=== PATIENT | female | born 1975 | race Caucasian/White ===

== ENCOUNTER 2018-02-23 03:09 | Observation (INO) | payer BC ==
--- NOTE | 2018-02-23 03:37 | ER ---
Nurse's Notes [facility] Name: Mague Haynes Age: 43 yrs Sex: Female : 1975 Arrival Date: 02/23/2018 Time: 03:11 Bed 17 Private MD: Kevin Duron S Diagnosis: Abdominal tenderness;Hypomagnesemia;Hypokalemia;Abnormal findings on diagnostic imaging of liver and biliary tract Presentation: 02/23 03:21 Presenting complaint: Patient states: Reports epigastric pain that started yesterday pt ea stated "I felt like there was something stuck in my esophagus". At midnight pain became more intense. Reports she has had this type of issue before but not this intense. Transition of care: patient was not received from another setting of care. Onset of symptoms was February 23, 2018. Initial Sepsis Screen: Does the patient meet any 2 criteria? No. Patient's initial sepsis screen is negative. Does the patient have a suspected source of infection? No. Patient's initial sepsis screen is negative. Care prior to arrival: Medication(s) given: Mylanta. 03:21 Method Of Arrival: Ambulatory ea 03:21 Acuity: RENETTA 3 ea Triage Assessment: 03:28 General: Appears uncomfortable, Behavior is calm, cooperative. Pain: Complains of pain ea in epigastric area. GI: Abdomen is non-distended, Bowel sounds present X 4 quads. Abd is soft X 4 quads Abdomen is tender to palpation in right upper quadrant and left upper quadrant. 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 - Social history:: Smoking status: Patient/guardian denies using tobacco. - Family history:: not pertinent. Screenin:25 Abuse screen: Denies threats or abuse. Nutritional screening: No deficits noted. ea Tuberculosis screening: No symptoms or risk factors identified. Fall Risk None identified. Assessment: 04:46 Reassessment: Patient and/or family updated on plan of care and expected duration. Pain ea level reassessed. Pt c/o abd pain 9/10, order obtained, medication administered, pt tolerated well. 05:36 Reassessment: Patient and/or family updated on plan of care and expected duration. Pain ea level reassessed. Patient is alert, oriented x 3, equal unlabored respirations, skin warm/dry/pink. Patient reports pain has decreased. 07:10 General: Appears in no apparent distress. uncomfortable, Behavior is calm, cooperative, hj appropriate for age. Pain: Complains of pain in left upper quadrant and right upper quadrant and abdomen and epigastric area. Neuro: Level of Consciousness is awake, alert, obeys commands, Oriented to person, place, time, situation, Appropriate for age. Cardiovascular: Capillary refill < 3 seconds Patient's skin is warm and dry. Respiratory: Airway is patent Respiratory effort is even, unlabored, Respiratory pattern is regular, symmetrical. GI: Reports lower abdominal pain, upper abdominal pain. : No signs and/or symptoms were reported regarding the genitourinary system. EENT: No signs and/or symptoms were reported regarding the EENT system. Derm: No signs and/or symptoms reported regarding the dermatologic system. Musculoskeletal: No signs and/or symptoms reported regarding the musculoskeletal system. 08:00 Reassessment: Dr. Medrano visited pt; POC explained;. hj 09:03 Reassessment: pt for MRI, POC depending on MRI results;. hj Vital Signs: 03:25 BP 119 / 89; Pulse 77; Resp 18; Temp 98.2(O); Pulse Ox 97% on R/A; Weight 64.86 kg; ea Height 5 ft. 5 in. (165.10 cm); Pain 7/10; 04:49 BP 114 / 84; Pulse 69; Resp 18; Pulse Ox 99% ; Pain 5/10; ea 05:39 BP 117 / 75; Pulse 72; Resp 18; Pulse Ox 98% ; ea 03:25 Body Mass Index 23.80 (64.86 kg, 165.10 cm) ea ED Course: 03:11 Patient arrived in ED. am2 03:11 Kevin Duron MD is Private Physician. am2 03:16 Reinaldo Jackson MD is Attending Physician. gary 03:19 Jimena Oliva, NICOLETTE is Primary Nurse. ea 03:20 Inserted saline lock: 20 gauge in right antecubital area, using aseptic technique. ea Blood collected. 03:24 Triage completed. ea 03:25 Patient has correct armband on for positive identification. Placed in gown. Bed in low ea position. Call light in reach. Side rails up X2. 03:25 Arm band placed on right wrist. Patient placed in an exam room, on a stretcher, on ea pulse oximetry. 03:36 Fausto Shane MD is Hospitalizing Provider. gary 03:41 X-ray completed. Portable x-ray completed in exam room. Patient tolerated procedure kw well. 03:42 XRAY Chest (1 view) In Process Unspecified. EDMS 06:[address] via wheelchair. eh 06:20 CT completed. Patient tolerated procedure well. eh 06:52 Ultrasound completed. Patient tolerated well. aa4 06:59 Hospitalizing Provider role handed off by Fausto Shane MD gary 06:59 Rhianna Medrano MD is Hospitalizing Provider. gary 07:09 Primary Nurse role handed off by Jimena Oliva RN bd 07:10 Kartik Prado, NICOLETTE is Primary Nurse. hj Administered Medications: 03:40 Drug: Pepcid 20 mg Route: IVP; Site: right antecubital; ea 05:25 Follow up: Response: No adverse reaction ea 03:40 Drug: Zofran 4 mg Route: IVP; Site: right antecubital; ea 05:09 Follow up: Response: No adverse reaction ea 03:40 Drug: NS 0.9% 1000 ml Route: IV; Rate: 1 bolus; Site: right antecubital; ea 05:08 Follow up: Response: No adverse reaction; IV Status: Completed infusion; IV Intake: ea 1000ml 04:00 Drug: fentaNYL (PF) 25 mcg Route: IVP; Site: right antecubital; ea 05:10 Follow up: Response: No adverse reaction; Pain is decreased ea 04:25 Drug: Zosyn 3.375 grams Route: IVPB; Infused Over: 60 mins; Site: right antecubital; ea 05:09 Follow up: Response: No adverse reaction; IV Status: Completed infusion ea 04:40 Drug: fentaNYL (PF) 25 mcg Route: IVP; Site: right antecubital; ea 05:11 Follow up: Response: No adverse reaction; Pain is decreased ea 05:25 Drug: Magnesium Sulfate 1 grams Route: IVPB; Infused Over: 1 hrs; Site: right ea antecubital; 05:28 Drug: NS 0.9% 1000 ml Route: IV; Rate: 1 bolus; Site: right antecubital; ea 05:30 Drug: NS 0.9% with KCl 20 mEq/L 1000 ml Route: IV; Rate: 125 ml/hr; Site: right ea antecubital; Intake: 05:08 IV: 1000ml; Total: 1000ml. ea Outcome: 03:37 Decision to Hospitalize by Provider. [facility] 09:43 Patient left the ED. aa5 Signatures: Dispatcher [employer] EDMS Destinee Eng Corey, MD MD cha Hagler, Ervin eh Frazier, Amanda aa4 Samantha Lucero RN RN aa5 Shirlene Alegria Henry, RN RN hj Moreno, Amanda am2 Jimena Oliva RN RN ea
--- NOTE | 2018-02-23 03:38 | EDPHYS ---
Physician Documentation [facility] Name: Mague Haynes Age: 43 yrs Sex: Female : 1975 Arrival Date: 02/23/2018 Time: 03:11 Bed 17 Private MD: Kevin Duron S ED Physician Reinaldo Jackson HPI: 02/23 03:31 This 43 yrs old Female presents to ER via Ambulatory with complaints of gary Abdominal Pain, Nausea. 03:31 The patient presents to the emergency department with nausea, vomiting, abdominal pain, gary of the epigastric area, right upper quadrant and left upper quadrant. Onset: The symptoms/episode began/occurred just prior to arrival. Possible causes: gallbladder. The symptoms are aggravated by food , The symptoms are alleviated by nothing. Associated signs and symptoms: The patient has no apparent associated signs or symptoms. Severity of symptoms: At their worst the symptoms were mild moderate in the emergency department the symptoms are unchanged. The patient has not experienced similar symptoms in the past. 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 - Social history:: Smoking status: Patient/guardian denies using tobacco. - Family history:: not pertinent. ROS: 03:31 Constitutional: Negative for fever, chills, and weight loss, Eyes: Negative for injury, gary pain, redness, and discharge, ENT: Negative for injury, pain, and discharge, Neck: Negative for injury, pain, and swelling, Cardiovascular: Negative for chest pain, palpitations, and edema, Respiratory: Negative for shortness of breath, cough, wheezing, and pleuritic chest pain, Back: Negative for injury and pain, : Negative for injury, bleeding, discharge, and swelling, MS/Extremity: Negative for injury and deformity, Skin: Negative for injury, rash, and discoloration, Neuro: Negative for headache, weakness, numbness, tingling, and seizure, Psych: Negative for depression, anxiety, suicide ideation, homicidal ideation, and hallucinations, Allergy/Immunology: Negative for hives, rash, and allergies, Endocrine: Negative for neck swelling, polydipsia, polyuria, polyphagia, and marked weight changes, Hematologic/Lymphatic: Negative for swollen nodes, abnormal bleeding, and unusual bruising. 03:31 Abdomen/GI: Positive for abdominal pain, of the epigastric area, right upper quadrant and left upper quadrant. Exam: 03:31 Constitutional: This is a well developed, well nourished patient who is awake, alert, gary and in no acute distress. Head/Face: Normocephalic, atraumatic. Eyes: Pupils equal round and reactive to light, extra-ocular motions intact. Lids and lashes normal. Conjunctiva and sclera are non-icteric and not injected. Cornea within normal limits. Periorbital areas with no swelling, redness, or edema. ENT: Nares patent. No nasal discharge, no septal abnormalities noted. Tympanic membranes are normal and external auditory canals are clear. Oropharynx with no redness, swelling, or masses, exudates, or evidence of obstruction, uvula midline. Mucous membranes moist. Neck: Trachea midline, no thyromegaly or masses palpated, and no cervical lymphadenopathy. Supple, full range of motion without nuchal rigidity, or vertebral point tenderness. No Meningismus. Chest/axilla: Normal chest wall appearance and motion. Nontender with no deformity. No lesions are appreciated. Cardiovascular: Regular rate and rhythm with a normal S1 and S2. No gallops, murmurs, or rubs. Normal PMI, no JVD. No pulse deficits. Respiratory: Lungs have equal breath sounds bilaterally, clear to auscultation and percussion. No rales, rhonchi or wheezes noted. No increased work of breathing, no retractions or nasal flaring. Back: No spinal tenderness. No costovertebral tenderness. Full range of motion. Skin: Warm, dry with normal turgor. Normal color with no rashes, no lesions, and no evidence of cellulitis. MS/ Extremity: Pulses equal, no cyanosis. Neurovascular intact. Full, normal range of motion. Neuro: Awake and alert, GCS 15, oriented to person, place, time, and situation. Cranial nerves II-XII grossly intact. Motor strength 5/5 in all extremities. Sensory grossly intact. Cerebellar exam normal. Normal gait. Psych: Awake, alert, with orientation to person, place and time. Behavior, mood, and affect are within normal limits. 03:31 Abdomen/GI: Inspection: abdomen appears normal, Bowel sounds: normal, Palpation: moderate abdominal tenderness, in the epigastric area, right upper quadrant and left upper quadrant. Vital Signs: 03:25 BP 119 / 89; Pulse 77; Resp 18; Temp 98.2(O); Pulse Ox 97% on R/A; Weight 64.86 kg; ea Height 5 ft. 5 in. (165.10 cm); Pain 7/10; 04:49 BP 114 / 84; Pulse 69; Resp 18; Pulse Ox 99% ; Pain 5/10; ea 05:39 BP 117 / 75; Pulse 72; Resp 18; Pulse Ox 98% ; ea 03:25 Body Mass Index 23.80 (64.86 kg, 165.10 cm) ea MDM: 03:16 Patient medically screened. [facility] 03:31 Data reviewed: vital signs, nurses notes, lab test result(s), EKG, radiologic studies, [facility] CT scan. 02/23 03:24 Order name: Amylase, Serum; Complete Time: 05:01 [facility] 02/23 03:24 Order name: Basic Metabolic Panel; Complete Time: 05:01 [facility] 02/23 03:24 Order name: CBC with Diff; Complete Time: 05:01 [facility] 02/23 03:24 Order name: Creatinine for Radiology; Complete Time: 05:01 [facility] 02/23 03:24 Order name: Hepatic Function; Complete Time: 05:01 [facility] 02/23 03:24 Order name: Lipase; Complete Time: 05:01 [facility] 02/23 03:24 Order name: Urine Microscopic Only [facility] 02/23 03:31 Order name: BNP; Complete Time: 05:01 [facility] 02/23 03:31 Order name: PT-INR; Complete Time: 05:01 [facility] 02/23 03:31 Order name: Ptt, Activated; Complete Time: 05:01 [facility] 02/23 03:31 Order name: Troponin (emerg Dept Use Only); Complete Time: 05:01 [facility] 02/23 03:31 Order name: XRAY Chest (1 view) [facility] 02/23 03:42 Order name: Basic Metabolic Panel EDMS 02/23 03:42 Order name: Basic Metabolic Panel EDMS 02/23 03:42 Order name: CBC with Automated Diff EDMS 02/23 03:42 Order name: CBC with Automated Diff EDMS 02/23 03:42 Order name: Lipase EDMS 02/23 03:42 Order name: Lipase [facility] 02/23 03:42 Order name: Liver (Hepatic) Function [facility] 02/23 03:42 Order name: Liver (Hepatic) Function [facility] 02/23 03:49 Order name: Creatine Phosphokinase; Complete Time: 05:01 [facility] 02/23 03:49 Order name: CKMB Creatine Kinase MB; Complete Time: 05:01 [facility] 02/23 03:49 Order name: Magnesium; Complete Time: 05:01 [facility] 02/23 04:24 Order name: Urine Dipstick--Ancillary (enter results) 02/23 04:24 Order name: Urine --Ancillary (enter results) 02/23 04:34 Order name: Urine --Ancillary; Complete Time: 05:01 [facility] 02/23 04:34 Order name: Urine Dipstick-Ancillary; Complete Time: 05:01 [facility] 02/23 03:24 Order name: Urine Test (obtain specimen); Complete Time: 04:26 [facility] 02/23 03:24 Order name: IV Saline Lock; Complete Time: 04:26 [facility] 02/23 03:24 Order name: Labs collected and sent; Complete Time: 04:26 [facility] 02/23 03:24 Order name: Urine Dipstick-Ancillary (obtain specimen); Complete Time: 04:26 [facility] 02/23 03:31 Order name: EKG; Complete Time: 03:32 [facility] 02/23 03:31 Order name: Cardiac monitoring; Complete Time: 06:36 [facility] 02/23 03:31 Order name: EKG - Nurse/Tech; Complete Time: 04:25 [facility] 02/23 03:31 Order name: O2 Per Protocol; Complete Time: 04:25 [facility] 02/23 03:31 Order name: O2 Sat Monitoring; Complete Time: 04:25 [facility] 02/23 03:31 Order name: CT Abd/Pelvis - W/Contrast [facility] 02/23 03:42 Order name: NPO [facility] 02/23 03:43 Order name: Abdomen Exam Limited [facility] 02/23 09:03 Order name: CT EDIA Administered Medications: 03:40 Drug: Pepcid 20 mg Route: IVP; Site: right antecubital; ea 05:25 Follow up: Response: No adverse reaction ea 03:40 Drug: Zofran 4 mg Route: IVP; Site: right antecubital; ea 05:09 Follow up: Response: No adverse reaction ea 03:40 Drug: NS 0.9% 1000 ml Route: IV; Rate: 1 bolus; Site: right antecubital; ea 05:08 Follow up: Response: No adverse reaction; IV Status: Completed infusion; IV Intake: ea 1000ml 04:00 Drug: fentaNYL (PF) 25 mcg Route: IVP; Site: right antecubital; ea 05:10 Follow up: Response: No adverse reaction; Pain is decreased ea 04:25 Drug: Zosyn 3.375 grams Route: IVPB; Infused Over: 60 mins; Site: right antecubital; ea 05:09 Follow up: Response: No adverse reaction; IV Status: Completed infusion ea 04:40 Drug: fentaNYL (PF) 25 mcg Route: IVP; Site: right antecubital; ea 05:11 Follow up: Response: No adverse reaction; Pain is decreased ea 05:25 Drug: Magnesium Sulfate 1 grams Route: IVPB; Infused Over: 1 hrs; Site: right ea antecubital; 05:28 Drug: NS 0.9% 1000 ml Route: IV; Rate: 1 bolus; Site: right antecubital; ea 05:30 Drug: NS 0.9% with KCl 20 mEq/L 1000 ml Route: IV; Rate: 125 ml/hr; Site: right ea antecubital; Disposition: 02/23/18 03:37 Hospitalization ordered by Rhianna Medrano for Observation. Preliminary diagnosis are Abdominal tenderness, Hypomagnesemia, Hypokalemia, Abnormal findings on diagnostic imaging of liver and biliary tract. - Bed requested for Telemetry/MedSurg (observation). - Status is Observation. aa5 - Condition is Stable. - Problem is new. - Symptoms have improved. UTI on Admission? No Signatures: Dispatcher [employer] Janine Gray RN RN kl Anderson, Corey, MD MD cha Calderon, Audri RN RN aa5 Jimena Oliva RN RN ea Botello, Elizabeth eb Corrections: (The following items were deleted from the chart) 03:46 03:37 Hospitalization Ordered by Fausto Shane MD for Observation. Preliminary eb diagnosis is Abdominal tenderness. Bed requested for Telemetry/MedSurg (observation). Status is Observation. Condition is Stable. Problem is new. Symptoms have improved. UTI on Admission? No. gary 03:48 03:31 CKMB+C.LAB.BRZ ordered. EDIA EDIA 03:48 03:31 CREATINE PHOSPHOKINASE+C.LAB.BRZ ordered. [facility] EDMS 03:48 03:31 MAGNESIUM+C.LAB.BRZ ordered. EDIA EDIA 04:41 03:46 02/23/2018 03:37 Hospitalization Ordered by Fausto Shane MD for Observation. kl Preliminary diagnosis is Abdominal tenderness. Bed requested for Telemetry/MedSurg (observation). Status is Observation. Condition is Stable. Problem is new. Symptoms have improved. UTI on Admission? No. eb 05:03 04:41 02/23/2018 03:37 Hospitalization Ordered by Fausto Shane MD for Observation. gary Preliminary diagnosis is Abdominal tenderness. Bed requested for Telemetry/MedSurg (observation). Status is Observation. Condition is Stable. Problem is new. Symptoms have improved. UTI on Admission? No. kl 07:00 05:03 02/23/2018 03:37 Hospitalization Ordered by Fausto Shane MD for Observation. gary Preliminary diagnosis is Abdominal tenderness; Hypomagnesemia; Hypokalemia. Bed requested for Telemetry/MedSurg (observation). Status is Observation. Condition is Stable. Problem is new. Symptoms have improved. UTI on Admission? No. gary 09:43 07:00 02/23/2018 03:37 Hospitalization Ordered by Rhianna Medrano MD for Observation. aa5 Preliminary diagnosis is Abdominal tenderness; Hypomagnesemia; Hypokalemia; Abnormal findings on diagnostic imaging of liver and biliary tract. Bed requested for Telemetry/MedSurg (observation). Status is Observation. Condition is Stable. Problem is new. Symptoms have improved. UTI on Admission? No. gary
[2018-02-23] MEDS ORDERED: ACETAMINOPHEN 500 MG TAB PO PRN (03:40)
[2018-02-23] MEDS ORDERED: FENTANYL CITR 100 MCG/2 ML IV PRN (03:40)
[2018-02-23] MEDS ORDERED: ONDANSETRON 4 MG/2 ML VIAL IV PRN (03:40)
[2018-02-23] MEDS ORDERED: PIPER/TAZO/NS 3.375gm 0 GM/0 ML BAG ONE (03:48)
[2018-02-23] MEDS ORDERED: NA CHLORIDE 0.9% 1,000 ML ONE ×2 (03:48→05:15)
[2018-02-23] MEDS ORDERED: PIPER/TAZO/NS 2.25gm 2.25 GM/50 ML BAG ONE (03:49)
[2018-02-23 03:51] LABS: Absolute Lymphocytes (CBC) 2.1 K/uL (0.7-4.9); Absolute Monocytes 0.4 K/uL (0.1-1.3); Absolute Neutrophil 3.2 K/uL (1.8-8.0); Basophils % 0.4 % (0-1.3); Eosinophils % 1.7 % (0-4.4); Hematocrit 39.6 % (36.0-45.0); Lymphocytes % 35.6 % (15.3-44.8); MCH 30.5 pg (27.0-35.0); MCV 92.7 fL (80-100); MPV 9.6 fL (7.6-11.3); Monocytes % 6.8 % (3.3-12.3); RBC Red Blood Cell Count 4.28 M/uL (3.86-4.86)
[2018-02-23 03:54] LABS: Protime INR 0.97
[2018-02-23 04:03] LABS: Bicarbonate 26 mEq/L (21-31); Glucose Level 123 mg/dL (65-120); Lipase 24 U/L (22-51); Potassium 3.4 mEq/L (3.6-5.0); Sodium Level 135 mEq/L (135-145)
[2018-02-23 04:09] LABS: ALT/SGPT 36 IU/L (10-60); AST/SGOT 26 IU/L (10-42); Albumin 3.8 g/dL (3.2-5.5); Alkaline Phosphatase 46 IU/L (42-121); Amylase Level 37 U/L (28-100); BUN Blood Urea Nitrogen 15 mg/dL (6-20); Bilirubin Direct 0.1 mg/dL (0-0.2); Bilirubin Total 0.5 mg/dL (0.3-1.2); Creatine Phosphokinase 43 IU/L (22-269); Magnesium 1.7 mg/dL (1.8-2.5); Protein, Total 6.7 g/dL (6.0-8.3)
[2018-02-23 04:11] LABS: CKMB Creatine Kinase MB 0.8 ng/ml (0.3-4.0)
[2018-02-23 04:34] LABS: Urine Blood TRACE (NEG); Urine Glucose NEGATIVE (NEG); Urine Protein NEGATIVE (NEG); Urine Specific Gravity 1.025 (1.005-1.030); Urine pH 5.5 (5.0-7.0)
[2018-02-23] MEDS ORDERED: NS KCL 20MEQ 1,000 ML IV ONE (05:14)
[2018-02-23] MEDS ORDERED: MAGNESIUM SULFATE 1 gm IVPB 1 GM/100 ML BAG IV ONE (05:15)
[2018-02-23 05:54] LABS: Urine Bacteria 20-50 /HPF (<20); Urine Culture Reflex Order REFLEXED; Urine RBC <5 /HPF (NONE SEEN)
--- NOTE | 2018-02-23 08:31 | RAD REPORT ---
EXAM DESCRIPTION: David Single View02/23/2018 3:42 am CLINICAL HISTORY: Abdominal pain COMPARISON: none FINDINGS: The lungs appear clear of acute infiltrate. A calcified granuloma is present within the r ight lower lobe. The heart is normal size IMPRESSION: No acute abnormalities displayed
[2018-02-23] MEDS ORDERED: FAMOTIDINE 20 MG/2 ML VIAL IV SCH (09:00)
[2018-02-23] MEDS ORDERED: PIPER/TAZO/NS 3.375gm 3.375 GM/100 ML BAG IVPB SCH ×2 (09:00→12:00)
--- NOTE | 2018-02-23 09:03 | RAD REPORT ---
EXAM DESCRIPTION: CT - Abdomen Pelvis W Contrast - 02/23/2018 6:27 am CLINICAL HISTORY: Abdominal pain/epigastric pain COMPARISON: none. TECHNIQUE: Computed axial tomography of the abdomen pelvis was obtained. 100 cc Isovue-300 was admin istered intravenously. Oral contrast given All CT scans are performed using dose optimization technique as appropriate and may include automated exposure control or mA/KV adjustment according to patient size. FINDINGS: The arterial phase demonstrates a 7 centimeter area of increased density within segment 7 of the liver. This appears hypodense on the venous phase. Periportal edema is seen. Spleen, pancreas, and adrenals appear unremarkable. Renal cysts are seen. A 42 millimeter cyst extends off of the left kidney. Bilateral ovarian cysts are seen measuring up to 21 millimeters. There is no evidence of diverticulitis. The appendix is normal. IMPRESSION: 7 centimeter area of abnormal density within segment VII of the liver may represent a tr ansient hepatic attenuation difference. It probably does not represent a mass. However, given its unu sual appearance it is recommended that the patient have an MRI for further evaluation Periportal edema is a nonspecific finding but can be associated with hepatic inflammation
--- NOTE | 2018-02-23 09:04 | RAD REPORT ---
EXAM DESCRIPTION: US - Abdomen Exam Limited - 02/23/2018 6:54 am CLINICAL HISTORY: Abdominal pain. COMPARISON: None. FINDINGS: The gallbladder wall is not thickened. A gallstone is not seen. The biliary tree is normal caliber. IMPRESSION: Unremarkable gallbladder ultrasound.
--- NOTE | 2018-02-23 10:39 | RAD REPORT ---
EXAM DESCRIPTION: MRIAbdomen CLINICAL HISTORY: Liver mass. COMPARISON: CT 02/23/2018, ultrasound 02/23/2018 FINDINGS: 6.1 x 4.4 cm mass recently noted on CT in segment VII shows isointensity to liver parenchy ma on T2, noncontrast T1 and postcontrast T1 weighted sequences. The lesion is seen to displace the r ight hepatic vein and demonstrates mass effect on surrounding vessels. It does not demonstrate aggres sive MR characteristics. Early arterial phase enhancement is not avid. 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 No intrahepatic or extrahepatic biliary tree dilatation. The spleen, adrenal glands and pancreas are within normal limits. The right kidney is normal. Cyst is present posterior left kidney measuring 3.9 x 2.6 cm with benign features. No bulky adenopathy or free fluid collections are seen in the abdomen. IMPRESSION: 6.1 x 4.4 cm mass in segment VII of the liver demonstrates MR characteristics most sami tible with a benign lesion, such as FNH. Followup CT surveillance imaging would be advised in 6 month s.
[2018-02-23] MEDS: D5 0.45 NS 1,000 ML IV SCH ×2 (10:56→12:00)
[2018-02-23] MEDS ORDERED: PROMETHAZINE 25 MG/ML VIAL IV ONE (11:00)
--- NOTE | 2018-02-23 15:21 | P.SSS ---
Patient History Date of Service: 02/23/18 Primary Care Provider: None Reason for admission: Abd pain History of Present Illness: This is a 43-year-old female with no significant past medical history who presented to the ED complaining of having some abdominal pain that started about 2-3 days ago along with nausea and vomiting. Patient stated that when she came to the ER she felt like there was a lot of epigastric pain which was radiating to her back and she has never had anything like this before. Pain was cramping in nature and mainly in the epigastric area. Patient stated that she thought initially the issue was having any pain with the gallbladder however was not for sure. Patient states that of note she has not had anything out of ordinary to eat for past couple of days and does not know what could be causing her symptoms. Patient is however a chronic of coffee drinker who drinks about 4-5 coffees a day. Patient denies having any fever chills shortness of breath or any chest pain with the associated symptoms. In the ER patient had an abdominal ultrasound done which was unremarkable for any gallbladder disease. Abdominal CT was done which was concerning for some hypodensity in the liver area and this patient was admitted for further workup. Allergies No Known Allergies Allergy (Unverified 02/23/18 05:03) Home Medications: Pantoprazole Sodium [Protonix] 40 mg PO DAILY #90 tablet. 02/23/18 Thyroid Tab [[employer] Thyroid*] 30 mg PO DAILY 02/23/18 - Past Medical/Surgical History Diabetic: No -: hypothyroidism -: C -sections (3x) - Family History Father -: Hypertension, Cancer Notes: lung cancer, ALS Mother -: Stroke - Social History Smoking Status: Never smoker Alcohol use: No CD- Drugs: No Caffeine use: Yes Place of Residence: Home Review of Systems General: As per HPI Physical Examination - Vital Signs Temperature: 97.7 F Blood Pressure: 126/87 Pulse: 76 Respirations: 18 Pulse Ox (%): 99 - Physical Exam General: Alert, In no apparent distress HEENT: Atraumatic, PERRLA, Mucous membr. moist/pink, EOMI, Sclerae nonicteric Neck: Supple, 2+ carotid pulse no bruit, No LAD, Without JVD or thyroid abnormality Respiratory: Clear to auscultation bilaterally, Normal air movement Cardiovascular: Regular rate/rhythm, Normal S1 S2 Gastrointestinal: Normal bowel sounds, No tenderness Musculoskeletal: No tenderness Integumentary: No rashes Neurological: Normal gait, Normal speech, Normal strength at 5/5 x4 extr, Normal tone, Normal affect Lymphatics: No axilla or inguinal lymphadenopathy - Studies Laboratory Data (last 24 hrs) 02/23/18 03:37: PT 11.5, INR 0.97, APTT 24.2 L 02/23/18 03:37: Magnesium Cancelled 02/23/18 03:37: B-Natriuretic Peptide 23 02/23/18 03:37: Creatinine 0.62 02/23/18 03:37: WBC 5.8, Hgb 13.0, Hct 39.6, Plt Count 203 02/23/18 03:37: Sodium 135, Potassium 3.4 L, BUN 15, Creatinine 0.64, Glucose 123 H, Magnesium 1.7 L, Total Bilirubin 0.5, AST 26, ALT 36, Alkaline Phosphatase 46, Amylase 37, Lipase 24 - Diagnosis (Problem(s)) (1) Abdominal pain Onset Date: 02/23/18 Status: Acute Plan: Most likely secondary to reflux Qualifiers: Abdominal location: epigastric Qualified Code(s): R10.13 - Epigastric pain Treatment Summary: Overall during the hospital stay patient remained stable Patient was admitted to the hospital for abdominal pain in the epigastric area most likely secondary to reflux. 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 Patient stated that her family has a history of cyst in the liver area and she will follow up with her primary care provider regarding diet. Patient was then discharged home under stable condition with a prescription of Protonix to go home with. Patient was also educated extensively on limiting her use of coffee peppermint peppers and citrus eat food in her daily diet to avoid any exacerbation of her reflux symptoms. Patient demonstrated understanding and thus was discharged home. - Disposition Disposition: ROUTINE DISCHARGE Condition: GOOD Diet: Regular Activity: Ad vangie
== END 2018-02-23 14:13 | disposition home or self-care (01) ==
LOC: ER 03:09 → ERHOLD 04:08 → 4TH 08:29
PROVIDERS: ADMIT Surgery; ATTEND Family Medicine
DX: R10.13 Epigastric pain (principal); E03.9 Hypothyroidism, unspecified
CPT/HCPCS: 36415; 71045; 74177; 76705; 80048; 80076; 81003; 81015; 81025; 82150; 82550; 82553; 83690; 83735; 83880; 84484; 85025; 85610; 85730; 87086; 87088; 96361; 96365; 96375; 99284; G0378; J2405; J2543; J2550; J3010; J3475; J7030; Q9967